=== PATIENT | female | born 1995 | race Caucasian/White ===

== ENCOUNTER → 2025-05-08 13:10 | Outpatient (BNVA) | payer SELFPAY | PROVIDERS: PCP Internal Medicine; Visit Provider Physician Assistant Medical | DX: Z02.79 Encounter for issue of other medical certificate (principal) ==

== ENCOUNTER 2025-11-29 13:27 | Outpatient (AMB) | payer OTHER, SELFPAY ==
--- NOTE | 2025-11-29 13:35 | MHC.PC.OV ---
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 Transferring care from Dr Nice and [facility]. Medical records have been requested and have received. Requesting for therapist. 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 Ota: Not Required per policy Accompanied by: Self / Same As Patient Allergies No Known Allergies (No Known Allergies*) Allergy (Unverified 11/29/25 15:49) Medication List - Last Reconciled 11/29/25 by Brody Garcia MD bupropion HCl XL (Wellbutrin XL) 150 mg PO QAM hydroxyzine HCl 50 mg PO DAILY PRN Tobacco use date assessed: 11/29/25 Dental Screening Dental Screen Date: 11/29/25 Did you have a dental visit in the last 12 months?: Yes Did you have a dental problem in the last 6 months where you did not have access to dental care?: No Was dental information given to patient?: Patient has dentist HPI HPI Comments History of Present Illness Details History of Present Illness - The patient is a 30-year-old female presenting as a new patient for management of anxiety and attention-deficit/hyperactivity disorder (ADHD). - She reports that her anxiety, which she believes is fueled by ADHD, has worsened since giving over two years ago, manifesting with new physical symptoms including vomiting and episodes of a eizhf-rp-reurfz response. - These episodes can last from 10 minutes to 6 hours, with the most intense phase lasting up to 30 minutes. 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 - She has tried fluoxetine 20 mg without noticeable effect and citalopram, which provided minimal benefit and was discontinued in April. - She was prescribed Wellbutrin previously but did not take it due to becoming and would now like to try it. - She is currently taking hydroxyzine for acute anxiety symptoms. - Her family history is significant for elevated thyroid levels. - She has two brothers, both with ADHD; one has Klinefelter syndrome, and the other is a recovering heroin addict. - The patient is not currently nursing her bmp-fylf-tfh child. 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 - Family Status: She has one daughter who is two years old. - Substance Use: No personal substance use was discussed; however, her older brother is a recovering heroin addict. - Pets: The patient owns two dogs. 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 1. Little interest or pleasure in doing things: not at all 2. Feeling down, depressed, or hopeless: not at all 3. Trouble falling or staying asleep, or sleeping too much: not at all 4. Feeling tired or having little energy: not at all 5. Poor appetite or overeating: not at all 6. Feeling bad about yourself - or that you are a failure or have let yourself or your family down: not at all 7. Trouble concentrating on things, such as reading the newspaper or watching television: not at all 8. Moving or speaking so slowly that other people could have noticed. Or the opposite - being so fidgety or restless that you have been moving around a lot more than usual: not at all 9. Thoughts that you would be better off or of hurting yourself in some way: not at all Total score: 0 Depression Screening Interpretation: Negative Depression Screening Done: Yes Source: Developed by Drs. Augustus Pedersen, Mary Higgins, Man Toro and colleagues, with an educational joey from [employer]. Thrive Questionnaire Date Thrive assessed: 11/29/25 I am a: Patient What is your living situation today?: I have a steady place to live Within the past 12 months, did the food you bought not last and you didn't have the money to get more?: Never true Within the past 12 months, did you worry whether your food would run out before you got money to buy more?: Never true Do you have trouble paying for medicines?: No Do you have trouble getting transportation to medical appointments?: No Do you have trouble paying your heating and electricity bill?: No Do you have trouble taking care of your child, family member or friend?: No Do you have trouble with day-to-day activities such as bathing, preparing meals, shopping, managing finances, etc.?: No Are you currently unemployed and looking for a job?: No Are you interested in more education?: No Please select the resources that you would like help with: None Currently or been in a relationship where the following occur: No concerns reported THRIVE Score: 0 AUDIT C Alcohol Use Questionnaire (AUDIT-C) 1. How often do you have a drink containing alcohol?: Never Total Score: 0 DANNY-7 AMB Questionnaire DANNY-7 Date DANNY - 7 assessed: 11/29/25 Feeling nervous, anxious, or on edge: 3 = Nearly every day Not being able to stop or control worryin = Nearly every day Worrying too much about different things: 3 = Nearly every day Trouble relaxin = Nearly every day Being so restless that it is hard to sit still: 3 = Nearly every day Becoming easily annoyed or irritable: 3 = Nearly every day Feeling afraid as if something awful might happen: 2 = More than half the days Total DANNY-7 score (0-4 normal; 5-9 mild; 10-14 moderate; 15-21 severe): 20 Source: Developed by Drs. Augustus Pedersen, Mary Higgins, Man Toro and colleagues, with an educational joey from [employer]. Review of Systems Narrative Review of Systems - Psychiatric: Reports anxiety and episodes of a fight or flight response. - Gastrointestinal: Reports vomiting associated with anxiety episodes. - Skin: Reports new darker skin spots of concern due to sun exposure. Physical exam (Primary Care) Vital Signs: Last Vital Signs Temp 97.5 F 11/29/25 13:37 Pulse 80 11/29/25 13:37 BP 130/70 11/29/25 13:37 Pulse Ox 99 11/29/25 13:37 Oxygen Delivery Method Room Air 11/29/25 13:37 BMI result Body Mass Index 26.2 Tobacco/Smoking Status: Tobacco use Status Tobacco use date assessed 11/29/25 11/29/25 13:49 Patient Tobacco Use Status Former Tobacco user 11/29/25 13:49 e-Cigarette/Vaping Use Never Used 11/29/25 13:49 PHQ-9: PHQ-9 Score PHQ-9: Total score 0 11/29/25 13:49 Depression Screening Interpretation: Negative Thrive Assessment: Date of Thrive Assessment Date Thrive assessed 11/29/25 11/29/25 13:49 Currently or been in a relationship where the following occur: No concerns reported Narrative Physical Exam General: Cooperative and healthy appearing Nutritional Appearance: Well nourished Orientation/consciousness: Patient oriented x3 Limitations: No limitations Head: Normal to inspection General: Appearance normal, both eyes and all related structures Neck: Normal visual inspection Chest: Normal palpation of entire chest wall Respiratory: Normal respiratory effort Neurology: Patient oriented x3 Coding Level of Care Code New Pt Level 4 (03913) Add On Problem Visit Only Diagnoses Generalized anxiety disorder F41.1 Assessment & Plan Assessment & Plan (1) Generalized anxiety disorder: Code(s): F41.1 - Generalized anxiety disorder Plan Plan - Prescribed Wellbutrin XL 150 mg once daily for management of anxiety and ADHD. - The patient may continue to take hydroxyzine as needed for breakthrough anxiety symptoms. - Placed a referral to psychiatry for further management. - Placed a referral to dermatology for evaluation of concerning skin lesions. - Ordered routine blood work, including a thyroid panel, given her family history. - The patient will follow up in one month to assess her response to Wellbutrin and determine if dose adjustment is necessary. Discussion Notes I have taken a history from the patient regarding her anxiety and agreed to her request to try Wellbutrin. I provided a 30-day supply of Wellbutrin 150 mg XL once daily and advised her that the medication may take one to two weeks to become effective. I confirmed that it is acceptable for her to continue using hydroxyzine as needed, even taking two if one is not sufficient. I informed her that I have sent referrals to both dermatology and psychiatry. We will follow up in one month to assess the medication's efficacy and discuss any necessary adjustments. Patient Instructions - Start taking Wellbutrin 150 mg once a day. - Be aware that it may take one to two weeks for the Wellbutrin to start working. - You may continue to take hydroxyzine as needed for anxiety; it is okay to take two pills if one does not help. - A referral has been sent for you to see a police specialist (plane runner) and a mental health doctor (psychiatrist). - Please get routine blood work done, which will include checking your thyroid levels. - Schedule a follow-up appointment in one month to check on your progress. Orders: Orders Basic Metabolic Panel Today F41.1 - Generalized anxiety disorder Lipid Panel Today F41.1 - Generalized anxiety disorder UA and rflx microscopic Today F41.1 - Generalized anxiety disorder Complete Blood Count no Diff Today F41.1 - Generalized anxiety disorder Lipase Today F41.1 - Generalized anxiety disorder, K85.90 - Acute pancreatitis without necrosis or infection, unspecified Thyroid Stimulating Hormone Today F41.1 - Generalized anxiety disorder Referrals Dermatology Referral L70.9 - Acne, unspecified Medications: New bupropion HCl XL (Wellbutrin XL) 150 mg PO QAM 30 tabs 0RF
[2025-11-29 13:37] VITALS: BP 130/70; PULSE 80; TEMP 36.4; O2SAT 99; BMI 26.2
--- OUTSIDE RECORDS SUMMARY | 2025-11-29 14:51 | XMS_ITS | Data Portability ---
Author Organization [place] [employer] [place], [facility] Surgery Address [address] [place] [address] Assessment No assessment recorded. Plan of Treatment Reminders Order Date Submit Date Provider Last Modified By Organization Details Last Modified Time Details Appointments None recorded. Lab test, urine 2019 020 jpython In-House Test, For Internal Use Only, Do Not Delete/merge, [id number] 0 13:34:25 urinalysis, dipstick 2019 020 [employer]python In-House Test, For Internal Use Only, Do Not Delete/merge, [id number] 0 13:24:24 CT + NG RNA, PCR, unspecified specimen 2019 020 [facility], [address], [place], [address], 0 12:08:53 Referral None recorded. Procedures None recorded. Surgeries None recorded. Imaging US, transvagina l 2019 020 Not available 0 10:06:00 Medication Orders None recorded. Patient TargetsNo targets recorded. Patient InstructionsNo instructions recorded. Reason for Referral None Reported. Results Created Date Observation Date Name Description Value Unit Range Abnormal Flag Note LastModifiedBy Organization Detail LastModifiedTime 06/25/20 20 06/26/2020 pregn david test, urine HCG negati ve Not Available In-House Te st For Internal Use Only, Do Not Delete/merge, [id number] 06/25/2020 17:43:42 06/11/20 20 06/11/2020 urina lysis , dipst ick Leukocytes Negati ve Not Available In-House Te st For Internal Use Only, Do Not Delete/merge, 06/11/2020 12:16:36 06/11/20 20 06/11/2020 urina lysis , dipst ick Nitrite negati ve Not Available In-House Te st For Internal Use Only, Do Not Delete/merge, 06/11/2020 12:16:36 06/11/2006/11/2020 urina lysis , dipst ick Protein Negati ve Not Available In-House Te st For Internal Use Only, Do Not Delete/merge, 06/11/2020 12:16:36 06/11/2006/11/2020 urina lysis , dipst ick pH 6.5 Not Available In-House T est For Internal Use Only, Do Not Delete/merge, 06/11/2020 12:16:36 06/11/2006/11/2020 urina lysis , dipst ick Blood Negati ve Not Available In-House Te st For Internal Use Only, Do Not Delete/merge, 06/11/2020 12:16:36 06/11/2006/11/2020 urina lysis , dipst ick Specific [place] 1.015 Not Available In-Rene se Test For Internal Use Only, Do Not Delete/merge, 06/11/2020 12:16:36 06/11/2006/11/2020 urina lysis , dipst ick Ketone Negati ve Not Available In-House Te st For Internal Use Only, Do Not Delete/merge, 06/11/2020 12:16:36 06/11/2006/11/2020 urina lysis , dipst ick Bilirubin Negati ve Not Available In-House Te st For Internal Use Only, Do Not Delete/merge, 06/11/2020 12:16:36 06/11/2006/11/2020 urina lysis , dipst ick Glucose Negati ve Not Available In-House Te st For Internal Use Only, Do Not Delete/merge, 06/11/2020 12:16:36 06/11/2006/13/2020 CT + NG RNA, PCR, unspe cifie d speci men chlamydia trachomatis, CHRISTY Negati ve negati ve Not Available [facility] ([facility]) [address], [place], [address], 06/13/2020 12:08:53 06/11/20 20 06/13/2020 CT + NG RNA, PCR, unspe cifie d speci men neisseria gonorrhoeae, CHRISTY Negati ve negati ve Not Available [facility] ([facility]) [address], [place], [address], 06/13/2020 12:08:53 07/31/2007/31/2020 ultra sound image s RAD [email or web address] Your In-House Momentum Machine [id number] 08/20/2020 09:12:28 Result Notes None recorded. Procedures Surgical History Date Name Laterality Status Provider Name and Address Organization Details Recorded Time 0 IUD Insertion completed Kelly Lopez MD [address], [place], [address], [place] [employer] [facility] 06/26/2020 12:13:10 Imaging Results None recorded. Procedure Notes None recorded. Medical Equipment None Reported. Allergies No known drug allergies Vitals Date Recorded Body weight Body mass index (BMI) Body height Systolic And Diastolic Provider Name and Address Organization Details Last Updated DateTime 06/11/2020 29557.27 g 22.3 kg/m2 157.48 cm 122/80 mm[Hg] BOB SORENSON [place] [facility] [facility] 06/11/2020 12:11:39 Date Recorded Body height Body mass index (BMI) Body weight Systolic And Diastolic Provider Name and Address Organization Details Last Updated DateTime 06/26/2020 157.48 cm 22.1 kg/m2 47283.68 g 118/76 mm[Hg] BOB SORENSON [place] [employer] [facility] [place] 06/26/2020 11:57:37 Social History Question Answer Notes LastModified by Organizat ion Details LastModified Time Tobacco Smoking Status Never Smoker BOB garcia [place] [employer] [facility] [place] 06/11/2020 12:15:08 What Is Your Level Of Caffeine Consumption? Occasional 1-2 Cups/ Day Information not available 06/11/2020 Which Illicit Or Recreational Drugs Have You Used? Marijuana Information not available 06/11/2020 Marital Status Single Current Partner Since 06/2019 Information not available 06/11/2020 Are You Sexually Active? Yes Information not available 06/11/2020 How Much Tobacco Do You Smoke? No Information not available 06/11/2020 Sex: Unknown Functional Status Question Answer Note LastModified by Organizat ion Details LastModified Time What is your level of alcohol consumption? Occasional 1 drink/ week Information not available 06/11/2020 Do you or have you ever used smokeless tobacco? 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 Never used electronic cigarettes Information not available 06/11/2020 Mental Status None recorded. Family History Relationship Description Onset Age of this Age Resolved Age Notes LastModified by Organization Details LastModified Time Paternal Grandmother Hypertensive disorder 95 Not available 2019 12:13:49 Paternal Uncle Malignant neoplasm of pancreas 62 Not available 2019 12:14:04 Unspecified Relation Malignant neoplasm of skin 20 matern al cousin Not available 06/11/2020 12:14:21 Medical History Condition Response Anxiety Disorder Y Uterine Anomaly Y Depression Y Gynecological History Statement/Question Response Abnormal Pap N Do you have bleeding between periods? N Date of LMP 06/07/2020 STIs/STDs Y N HPV Vaccine Y Duration of Flow (days) 5 Age at Menarche 12 Current Control Method BCPs Frequency of Cycle (Q days) Sexually Active? Y Date of Last Pap Smear N Obstetrics History GPAL:G 1 P 0 0 1 0 Type Value Full Term 0 Induced 1 Living 0 Total 1 Past Encounters Encounter ID Performer Location Encounter Start Date Encounter Closed Date Diagnosis/Indication Diagnosis SNOMED-CT Code Diagnosis ICD10 Code Diagnosis IMO Codes Diagnosis Note [id number] Kelly Lopez MD [facility] Office [address] [address] 06/11/2020 11:51:36 06/11/2020 12:42:10 Gynecologic examination 44010393 Z01.419 Normal mover exam Last pap 2019- WNL, recommend repeating Q3 years GC/CT sent today BCM: OCPs - would like to switch to IUD f/u 1 year or PRN Contracept formerly [facility] 660053720 Z30.9 All Control Options reviewed, including: OCP, Nuva Ring, Depo Provera, Nexplanon, Mirena IUD, Paragard IUD. R/B/Potent ial side effects for each reviewed. Handouts provided. Discussed that none of the above options protect from STDs. Patient desires trial of Liletta Venereal d isease screening 786502401 Z11.3 [id number] Kelly Lopez MD [facility] Office [address] [address] 06/26/2020 11:41:47 06/26/2020 12:15:27 Insertion of intrauterine contraceptive device 32455443 Z30.430 IUD inserted without immediate complicati onPlan f/u in 4-6 weeks [id number] Kelly Lopez MD [facility] Office [address] [address] 07/31/2020 09:18:53 07/31/2020 13:45:39 IUD check 955884395 Z30.431 Health Concerns Section Related Observation LastModified by Organization Detai ls LastModified Time None Recorded Concern Status LastModified by Organization Details LastModified Time None Recorded Advance Directives Directive None Recorded Payers Insurance Date Sequence Insurance Name Policy Number Policy Dc Covered Member ID Dc Member ID Guarantor Name 07/31/2020 1 [facility] [id number] Sofy Mustafa [id number] Terese Pimentelchesi Notes Date Note Type Note Provider Name and Address Organization Details Recorded Time 0 text/html Annual GYNReported by PatientGenitourinary symptomsFor menstrual cycle, patient reportsnormal menses. For urinary symptoms, patient reportsno hematuriaandno incontinence. For vulva, patient reportsno genital lesion. For vagina, patient reportsnormal vaginal discharge.Breast symptomsFor breast, patient reportsno breast pain,no breast lump, andno nipple discharge.ContraceptionFo r current contraception, patient reportsoral contraceptives.Endocrine symptomsFor sexual complaints, patient reportsno sexual complaints,no pain during intercourse, andnormal libido. For menopausal symptoms, patient reportsno menopausal symptomsandnormal vaginal lubrication.Psychological symptomsFor psychological symptoms, patient reportsno depression,no anxiety, andno pmdd.LMP: 06/07/2020Pap: 04/2019 wnlBC: Taking OCP's but doesn't remember the name Pt offers no concerns and no changes in medical history BOB garcia, [place] [employer] [facility] [place] 06/11/2020 12:40:38 0 text/html ROS as noted in the HPI Pt presents for Liletta IUD insertion. -UPT in office today and consent forms signed. No unprotected intercourse in the past 10 days. Pt took 800mg of ibuprofen. Kelly Lopez MD [address], [place], [address], [place] [employer] [facility] [place] 06/26/2020 12:13:55 OBGyn Episode No OBEpisode recorded.
== END 2025-11-29 14:08 | disposition home or self-care (01) ==
LOC: HO.HMCH 13:27
PROVIDERS: PCP Internal Medicine; Visit Provider Internal Medicine
DX: F41.1 Generalized anxiety disorder (principal)

== ENCOUNTER → 2025-11-29 13:27 | Outpatient (BNVA) | payer OTHER, SELFPAY | PROVIDERS: PCP Internal Medicine; Visit Provider Internal Medicine | DX: F41.1 Generalized anxiety disorder (principal); K85.90 Acute pancreatitis without necrosis or infection, unspecified; L70.9 Acne, unspecified; Z87.59 Personal history of other complications of pregnancy, childbirth and the puerperium; Z83.49 Family history of other endocrine, nutritional and metabolic diseases; Z82.0 Family history of epilepsy and other diseases of the nervous system | CPT/HCPCS: 99202 ==